=== PATIENT | female | born 1945 | race Caucasian/White ===

== ENCOUNTER → 2018-05-02 | Outpatient (REF) | payer MEDICARE ==
[~2018-05-02] VITALS: Ht 162.6 cm; Wt 77.1 kg
[~2018-05-02] MED LIST: ALPRAZOLAM0.5 MG PO; ASPIRIN81 MG PO; BYSTOLIC5 MG PO; CHLORTHALIDONE25 MG PO; LIPITOR20 M1 PO; LISINOPRIL20 MG PO
[2018-05-02 09:53] VITALS: BP 161/76
== END | disposition home or self-care (01) ==
LOC: PO 09:27 → ORM 09:45
PROVIDERS: ATTEND Internal Medicine Gastroenterology
DX: Z01.818 Encounter for other preprocedural examination (principal); K59.00 Constipation, unspecified; Z86.010 Personal history of colon polyps; I10 Essential (primary) hypertension; Z98.890 Other specified postprocedural states; Z90.49 Acquired absence of other specified parts of digestive tract; Z90.710 Acquired absence of both cervix and uterus

== ENCOUNTER 2018-05-09 07:22 | Day surgery (SDC) | payer MEDICARE ==
[~2018-05-09] VITALS: Ht 162.6 cm; Wt 77.1 kg
[2018-05-09 10:18] VITALS: BP 127/61
== END 2018-05-09 10:38 | disposition home or self-care (01) ==
LOC: ENDO 07:22
PROVIDERS: ATTEND Internal Medicine Gastroenterology
PROC: 0DBL8ZX Excision of Transverse Colon, Via Natural or Artificial Opening Endoscopic, Diagnostic (ICD-10-PCS; principal; 2018-05-09)
DX: K59.00 Constipation, unspecified (principal); R14.0 Abdominal distension (gaseous); D12.3 Benign neoplasm of transverse colon; I10 Essential (primary) hypertension; K64.4 Residual hemorrhoidal skin tags; K57.30 Diverticulosis of large intestine without perforation or abscess without bleeding; K64.8 Other hemorrhoids; K21.9 Gastro-esophageal reflux disease without esophagitis; Z86.010 Personal history of colon polyps